=== PATIENT | female | born 1950 | race African-American/Black ===

== ENCOUNTER → 2016-05-04 17:04 | Outpatient (CLI) | payer MEDICARE | END | disposition home or self-care (01) | LOC: D.MAMMO 16:00 | DX: Z12.31 Encounter for screening mammogram for malignant neoplasm of breast (principal) ==

== ENCOUNTER → 2016-05-21 08:59 | Outpatient (CLI) | payer MEDICARE ==
--- NOTE | 2016-05-28 12:24 | EC ---
PATIENT:VERITO CREWS DATE OF SERVICE: 05/21/16 SEX: F MEDICAL RECORD: [id number] DATE OF : 46 LOCATION:[facility] AGE OF PATIENT: 66 ADMISSION DATE: 05/21/16 REFERRING PHYSICIAN: INTERPRETING PHYSICIAN: LUCIO CARDOZO M.D. ECHOCARDIOGRAM REPORT ECHO CHARGES 4 ECHO COMPLETE CLINICAL DIAGNOSIS: HEART MURMUR HX HTN ECHOCARDIOGRAPHIC MEASUREMENTS (adult normal given) AC root (d.<3.7cm) 3.3 LV Septum d (<1.2 cm> 1.4 Valve Excursion 1.7 LV Septum (systole) 1.8 Left Atria (s.<4.0cm> 3.4 LVPW d(<1.2cm) 1.6 RV (d.<2.3cm) 3.6 LVPW (sytole) 1.8 LV diastole(<5.6CM) 4.2 MV E-F(>70mm/sec) LV systole 2.5 LVOT Diameter 1.6 MV exc.(>10mm) 1.5 Est.ejection fraction (50-75%) Pericardial Effusion N DOPPLER: LVIT A 82.0 E 63.0 LA RVSP 35 LVOT 101 AOP1/2T Asc. Ao 151 RVOT 78 RA PA 109 AV Gradient Peak 9.10 AV Mean 3.93 AV Area 1.4 MV Gradient Peak 4.89 MV Mean 1.29 MV Area COMMENTS: Machine Rebuilder: Ingrid COLON Retail Advertising Executive:2 Dr. Cardozo TAPE# PACS DATE OF SERVICE: 05/21/2016 INDICATION: Murmur. REFERRING PHYSICIAN: Hailey Johnson M.D. DESCRIPTION: Left ventricle demonstrates left ventricular hypertrophy. No wall motion abnormalities are noted. Estimated ejection fraction is 60%. Mitral valve is structurally normal. There is mild regurgitation seen. Left atrium is normal size. The aortic valve is trileaflet. There is no stenosis or ECHOCARDIOGRAM REPORT [id number] VERITO CREWS regurgitation seen. Right ventricle is mildly dilated. Tricuspid valve is structurally normal. There is mild regurgitation noted. Right atrium is normal size. There is no pericardial effusion seen. IMPRESSION: 1. Left ventricular hypertrophy with preserved ejection fraction of 60%. 2. Mild mitral regurgitation. 3. Mild tricuspid regurgitation. TRANSINT:[id number] Voice Confirmation ID: [id number] DOCUMENT ID: [id number] LUCIO CARDOZO M.D. at 1224 CC: [id number] DICTATION DATE: 05/21/16 1309 NETWORKER: 05/22/16 0345 DEP CLI 05/21/16 [place] [id number] [place] [id number]
== END | disposition home or self-care (01) ==
LOC: D.ECHO 04-13 09:00
DX: R01.0 Benign and innocent cardiac murmurs (principal)